=== PATIENT | male | born 1980 | race Caucasian/White ===

== ENCOUNTER 2021-12-19 21:00 | Emergency (ER) | payer OTHER, BC ==
[2021-12-19 21:25] LABS: AMPHETAMINES,URINE NEGATIVE (NEGATIVE); BARBITURATES,URINE NEGATIVE (NEGATIVE); BENZODIAZEPINE,URINE NEGATIVE (NEGATIVE); MDMA (ECSTASY), URINE NEGATIVE (NEGATIVE); METHADONE,URINE NEGATIVE (NEGATIVE); METHAMPHETAMINES,URINE NEGATIVE (NEGATIVE); OPIATES,URINE NEGATIVE (NEGATIVE); OXYCODONE,URINE NEGATIVE (NEGATIVE); PHENCYCLIDINE,URINE NEGATIVE (NEGATIVE); TCA,URINE NEGATIVE (NEGATIVE)
== END 2021-12-19 22:08 | disposition home or self-care (01) ==
LOC: DL.ED 21:00
DX: Z77.098 Contact with and (suspected) exposure to other hazardous, chiefly nonmedicinal, chemicals (principal); F17.210 Nicotine dependence, cigarettes, uncomplicated
CPT/HCPCS: 80305-QW; 99283

== ENCOUNTER 2024-10-01 01:10 | Emergency (ER) | payer OTHER, BC | END 2024-10-01 01:43 | LOC: DL.ED 01:10 | DX: S76.312A Strain of muscle, fascia and tendon of the posterior muscle group at thigh level, left thigh, initial encounter (principal); Y93.72 Activity, wrestling; W19.XXXA Unspecified fall, initial encounter | CPT/HCPCS: 99283 ==